=== PATIENT | male | born 1975 | race Caucasian/White ===

== ENCOUNTER 2024-04-17 14:15 | Emergency (ER) | payer OTHER, SELFPAY ==
[2024-04-17 14:23] VITALS: BP 133/89; PULSE 76; TEMP 36.9; O2SAT 98; BMI 23.9
--- NOTE | 2024-04-17 14:28 | XR_ITS ---
The [address] [address] Patient Name: HILLARY HERRMANN MRN: [id number] date: 1975 Sex: M Assigned Patient Location: ED.MAIN Current Patient Location: ED.MAIN Accession/Order Number: [id number] Exam Date: 04/17/2024 14:35 Report Date: 04/17/2024 15:18 At the request of: BALTA VENEGAS Procedure: XR finger RT min 2V EXAM: XR finger RT min 2V HISTORY: right thumb injury COMPARISON: None. TECHNIQUE: 3 views of right first digit FINDINGS: There is no acute fracture or dislocation. The soft tissue is unremarkable. XR/XR finger RT min 2V IMPRESSION: No acute fracture. Electronically authenticated by: MAURICE DUARTE Date: 04/17/2024 15:18
--- NOTE | 2024-04-17 14:29 | ED.UPPEXIN1 ---
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 A large dumpster that was being pulled by a tugger hit a rail and came back and hit the patient in the right thumb. He complains of pain over the dorsum of the right thumb. He is right-hand dominant. No medications taken prior to arrival. He had no other associated injuries or crush injury. Related Data Previous Rx's ?Medication ?Instructions ?Recorded ketorolac 10 mg tablet 10 mg PO TID PRN pain #10 tabs 04/17/24 Allergies Allergy/AdvReac Type Severity Reaction Status Date / Time No Known Drug Allergies Allergy Verified 04/17/24 14:26 Opioid HPI Opioid Management Most Recent Pain and Opioid Data: Last Pain Scale 0 04/17/24 14:26 04/17/24 Review of Systems ROS Constitutional Denies: fever or chills Ears, nose, mouth, and throat Denies: throat pain, nasal discharge or nasal congestion Respiratory Denies: shortness of breath Gastrointestinal Denies: nausea or vomiting Musculoskeletal Reports: extremity pain, extremity swelling, joint pain and limited range of motion; Denies: back pain or neck pain Integumentary/Breast Denies: rash Neurological Denies: numbness in extremities or weakness in extremities Hematologic/Lymphatic Denies: easy bruising or easy bleeding PFSH PFSH Social History Little interest or pleasure in doing things: not at all Feeling down, depressed, or hopeless: not at all Exam Narrative Exam Narrative: Gen.: Awake, alert, in no distress Head: Normocephalic, atraumatic ENT: Moist mucous membranes Respiratory: No respiratory distress Extremities: Right thumb is minimally swollen, pain with flexion and extension at the IP and MCP joints with no obvious deformity or tendon deficit. No abrasions or lacerations. No subungual hematoma Psych: Normal mood and affect Neuro: No focal neuro deficit Skin: Warm, dry, intact Constitutional Vital Signs, click to edit/add: Last Vital Signs Temp 98.4 F 04/17/24 14:23 Pulse 76 04/17/24 14:23 Resp 18 04/17/24 14:23 BP 133/89 04/17/24 14:23 Pulse Ox 98 04/17/24 14:23 O2 Del Method Room Air 04/17/24 14:23 Course Vital Signs Vital signs: Vital Signs Temperature 98.4 F 04/17/24 14:23 Pulse Rate 76 04/17/24 14:23 Respiratory Rate 18 04/17/24 14:23 Blood Pressure 133/89 04/17/24 14:23 Pulse Oximetry 98 04/17/24 14:23 Oxygen Delivery Method Room Air 04/17/24 14:23 Temperature 98.4 F 04/17/24 14:23 Pulse Rate 76 04/17/24 14:23 Respiratory Rate 18 04/17/24 14:23 Blood Pressure 133/89 04/17/24 14:23 Pulse Oximetry 98 04/17/24 14:23 Oxygen Delivery Method Room Air 04/17/24 14:23 MDM - Extremity Injury (Upper) MDM Narrative Medical decision making narrative: Patient declined pain medication, ice applied in the ER. X-rays obtained, reviewed by myself and attending physician with no evidence of acute fracture or dislocation. Patient placed in a thumb splint and remains neurovascularly intact. Rest, ice, elevate. Follow-up with occupational health and return to the ER if symptoms change or worsen. Toradol given as needed for home. SHARED APC VISIT, PHYSICIAN ATTESTATION: [id number] I performed a substantive part of the MDM during the patient?s E/M visit. I personally evaluated and examined the patient. I personally made or approved the documented management plan and acknowledge its risk of complications. Medical Records Attestation: I reviewed the patient's medical records. Discharge Plan Discharge Chief Complaint: Extremity Injury, Upper Clinical Impression: Contusion of right thumb Patient Disposition: Home, Self-Care Time of Disposition Decision: 14:57 Condition: Good Prescriptions / Home Meds: New ketorolac 10 mg tablet 10 mg PO TID PRN (Reason: pain) Qty: 10 0RF Print Language: Setswana Instructions: Contusion in Adults (ED) Referrals: [facility] [Outside] - As soon as possible
== END 2024-04-17 15:22 | disposition home or self-care (01) ==
PROVIDERS: Emergency Provider Emergency Medicine
DX: S60.011A Contusion of right thumb without damage to nail, initial encounter (principal); W22.8XXA Striking against or struck by other objects, initial encounter
CPT/HCPCS: 73140; 99283